=== PATIENT | female | born 1960 | race Caucasian/White ===

== ENCOUNTER 2017-06-16 17:32 | Emergency (ER) | payer BC ==
[2017-06-16 18:04] LABS: BASO # 0.1 K/uL (0.0-0.2); BASO % 1.1 % (0.0-2.0); EOS # 0.1 K/uL (0.0-0.7); EOS % 1.6 % (0.0-4.0); HEMOGLOBIN 12.9 g/dL (11.0-16.0); LYMPH # 3.5 K/uL (1.0-4.3); LYMPH % 38.9 % (20.0-40.0); MEAN CELL VOLUME 88.7 fL (81.0-99.0); MEAN CORPUSCULAR HEMOGLOBIN 30.3 pg (27.0-31.0); MEAN CORPUSCULAR HGB CONC 34.1 g/dL (33.0-37.0); MEAN PLATELET VOLUME 8.4 fL (7.2-11.7); MONO # 0.5 K/uL (0.0-0.8); MONO % 5.6 % (0.0-10.0); NEUT # 4.7 K/uL (1.8-7.0); NEUT % 52.8 % (50.0-75.0); NRBC % 0.1 % (0.0-2.0); RBC 4.27 Mil/uL (3.80-5.20); RED CELL DISTRIBUTION WIDTH 13.3 % (11.5-14.5); WHITE BLOOD COUNT 8.9 K/uL (4.8-10.8)
[2017-06-16 18:12] LABS: ALBUMIN 4.2 g/dL (3.5-5.0)
[2017-06-16 18:14] LABS: GFR AFRICAN-AMERICAN > 60; GFR NON-AFRICAN AMERICAN > 60
[2017-06-16 18:15] LABS: ALB/GLOB RATIO 1.3 (1.0-2.1); ALT/SGPT 35 U/L (9-52); AST/SGOT 22 U/L (14-36); BLOOD UREA NITROGEN 16 mg/dL (7-17); CALCIUM 8.8 mg/dl (8.6-10.4)
[2017-06-16] MEDS ORDERED: Sodium Chloride 0.9% 1,000 ML IV ONE (18:16)
[2017-06-16] MEDS ORDERED: Alum-Mag Hydrox-Simethicone Susp (30 mL) PO STA (18:17)
[2017-06-16 18:23] LABS: CK-MB 1.06 ng/mL (0.0-3.38)
[2017-06-16] MEDS ORDERED: Alum-Mag Hydrox-Simethicone Susp (30 mL) ONE (18:29)
[2017-06-16] MEDS ORDERED: Sodium Chloride 0.9% 1,000 ML ONE (18:29)
[2017-06-16 18:52] LABS: SQUAMOUS EPITHIAL 1 /hpf (0-5); URINE BILIRUBIN NEGATIVE (NEGATIVE); URINE CLARITY Clear (Clear); URINE COLOR Yellow (YELLOW); URINE GLUCOSE (UA) NORMAL (Normal); URINE LEUKOCYTE ESTERASE NEG Leu/uL (Negative); URINE NITRATE NEGATIVE (NEGATIVE); URINE PROTEIN NEGATIVE (NEGATIVE); URINE UROBILINOGEN NORMAL mg/dL (0.2-1.0)
[2017-06-16 18:55] LABS: URINE BLOOD TRACE (NEGATIVE)
[2017-06-16 19:17] LABS: B-TYPE NATRIURETIC PEPTIDE 81.6 pg/mL (0-900)
--- NOTE | 2017-06-16 19:37 | C.PDOC ---
History Of Present Illness 57 year old female presents to the ED with complaints of burning epigastric pain that radiates to chest resulting in palpitations over the last week. Patient states she was seen in [facility] on 06/08/17 and had a normal work up. She denies SOB, fever, nausea, or vomiting. Time Seen by Provider: 06/16/17 18:07 Chief Complaint (Nursing): Chest Pain History Per: Patient History/Exam Limitations: no limitations Onset/Duration Of Symptoms: Days (1 week ) Current Symptoms Are (Timing): Still Present Quality: Burning Associated Symptoms: denies: Nausea, Dyspnea, Diaphoresis, Syncope Recent travel outside of the [place]: No Past Medical History Reviewed: Historical Data, Nursing Documentation, Vital Signs Vital Signs: Last Vital Signs Temp 98.3 F 06/16/17 19:55 Pulse 70 06/16/17 19:55 Resp 18 06/16/17 19:55 BP 136/78 06/16/17 19:55 Pulse Ox 97 06/16/17 19:55 Family History: States: Unknown Family Hx - Social History Hx Alcohol Use: No Hx Substance Use: No - Immunization History Hx Tetanus Toxoid Vaccination: No Hx Influenza Vaccination: No Hx Pneumococcal Vaccination: No Review Of Systems Constitutional: Negative for: Fever, Chills Cardiovascular: Positive for: Chest Pain (radiating from burning epigastric pain ), Palpitations (resulting from chest pain radiating from epigastric burning ) Gastrointestinal: Positive for: Abdominal Pain (burning epigastric pain). Negative for: Nausea, Vomiting, Diarrhea Physical Exam - Physical Exam Appears: Non-toxic, No Acute Distress Skin: Warm, Dry Head: Atraumatic Eye(s): bilateral: Normal Inspection, PERRL, EOMI Oral Mucosa: Moist Neck: Supple Chest: Symmetrical, No Deformity Cardiovascular: Rhythm Regular Respiratory: Normal Breath Sounds, No Rhonchi, No Wheezing Gastrointestinal/Abdominal: Soft, Tenderness (mild epigastric tenderness), No Distention, No Guarding, No Rebound Neurological/Psych: Oriented x3 ED Course And Treatment - Laboratory Results Result Diagrams: 06/16/17 17:59 06/16/17 17:59 Lab Interpretation: Normal (d-dimer neg.) ECG: Interpreted By Ga ECG Interpretation: Normal Rate From EC O2 Sat by Pulse Oximetry: 98 (room air ) Pulse Ox Interpretation: Normal - Radiology CXR: Interpreted by Me CXR Interpretation: Yes: No Acute Disease Progress Note: maalox/protonix IV, tylenol PO Reevaluation Time: 19:37 Reassessment Condition: Improved (epigastric discomfort and nausea resolved.) Medical Decision Making Medical Decision Making: prior h/o gastritis/PUD on Prilosec, but non-compliant for ?? reasons epigastric discomfort and nausea more likely GI related and not cardiac- w/u neg and d-dimer neg. PPI and Maalox PRN educated. Disposition Doctor Will See Patient In The: Office Counseled Patient/Family Regarding: Studies Performed, Diagnosis - Disposition Referrals: [facility] [Outside] [facility] [Outside] Disposition: HOME/ ROUTINE Disposition Time: 19:38 Condition: GOOD Additional Instructions: Sigue Protonix 40 mg 9AM y 9PM para bajar el acidez del estomago Maallox 30 cc (liu cucharada) 5 veces al mazin por 5 knutson (entre comidas), lluego cuando necessitas Dieta de GERD: evitando comidas y bebidas que provocan el GERD Sigue en nuest[facility] ([facility]) en 1-2 meces, para seguir con un Gastroenterologo dewayne necessario Prescriptions: Pantoprazole Sodium [Protonix] 40 mg PO Q12H #60 ect Instructions: Peptic Ulcer (ED), Gastritis (ED) Forms: [employer] (Nepali) Print Language: PORTUGUESE - Clinical Impression Clinical Impression: Epigastric burning sensation, Palpitation - Scribe Statement The provider has reviewed the documentation as recorded by the Scribjennifer Vincent All medical record entries made by the Scribe were at my direction and personally dictated by me. I have reviewed the chart and agree that the record accurately reflects my personal performance of the history, physical exam, medical decision making, and the department course for this patient. I have also personally directed, reviewed, and agree with the discharge instructions and disposition.
[2017-06-16 19:55] VITALS: BP 136/78; PULSE 70; RESP 18; TEMP 98.3
[2017-06-16 23:20] VITALS: O2SAT 98
--- NOTE | 2017-06-17 08:13 | RAD ---
HISTORY: Shortness of breath COMPARISON: No prior. TECHNIQUE: Chest PA and lateral FINDINGS: LUNGS: Small nodular density which may represent pulmonary nodule and or granuloma at the lateral aspect of the right midlung zone. Diffuse increased interstitial lung markings which may represent edema and or infiltrate. Clinical correlation. Mild right hilar prominence. Bibasilar breast and nipple shadows. PLEURA: No significant pleural effusion identified. No pneumothorax apparent. CARDIOVASCULAR: Normal. OSSEOUS STRUCTURES: No significant abnormalities. VISUALIZED UPPER ABDOMEN: Normal. OTHER FINDINGS: None. IMPRESSION: Small nodular density which may represent pulmonary nodule and or granuloma at the lateral aspect of the right midlung zone. Diffuse increased interstitial lung markings which may represent edema and or infiltrate. Clinical correlation. Mild right hilar prominence. Bibasilar breast and nipple shadows.
== END 2017-06-16 19:55 | disposition home or self-care (01) ==
LOC: C.ER 17:32
DX: R00.2 Palpitations (principal); R10.13 Epigastric pain
CPT/HCPCS: 71020; 80053; 81001; 83880; 84484; 84703; 85025; 85378; 96361; 96374; 99285; C9113; J7040